=== PATIENT | female | born 1930 | race Caucasian/White ===

== ENCOUNTER → 2017-04-02 | Outpatient (CLI) | payer MEDICARE, OTHER ==
--- NOTE | 2017-04-05 10:47 | MM ---
Reason for exam: follow-up at short interval from prior study. Last mammogram was performed 1 year and 11 months ago. History: Patient is postmenopausal and history of other cancer. Benign excisional biopsy of the right breast, October 2016. Took estrogen for 38 years beginning at age 33. Physical Findings: Nurse did not find any significant physical abnormalities on exam. MG 3D Diag Mammo W/Cad RT CC and MLO view(s) were taken of the right breast. Prior study comparison: July 28, 2016, ultrasound, performed at [facility]. July 03, 2016, mammogram, performed at [facility]. May 12, 2015, bilateral MG screening mammo w CAD. May 16, 2013, bilateral digital screening mammo w/CAD. The breast tissue is heterogeneously dense. This may lower the sensitivity of mammography. No significant new findings when compared with previous films. These results were verbally communicated with the patient on 04/05/17. ASSESSMENT: Benign, BI-RAD 2 RECOMMENDATION: Routine screening mammogram of both breasts in 4 months. Back on schedule for July 2017.
== END | disposition home or self-care (01) ==
LOC: RADMAMWWP 09:06
PROVIDERS: ATTEND Surgery
DX: R92.8 Other abnormal and inconclusive findings on diagnostic imaging of breast (principal)
CPT/HCPCS: G0206; G0279